=== PATIENT | female | born 1945 | race Caucasian/White ===

== ENCOUNTER 2022-03-13 13:30 | Outpatient (RCR) | payer MEDICARE, BC, SELFPAY ==
--- NOTE | 2022-02-11 15:16 | PTOPEVAL1 ---
Assessment and note entered by Lacey Catherine, PT Evaluation Information Assessment Status Evaluation Diagnosis L side sciatica Onset October 2021 Subjective Information gradual increase in pain in back; no injury or trauma to back; dr gave her steroids and they helped her pain, then when stopped med-pain came back worse; went to urgent care center for back pain; have not had any tests for her back; Reported Pain Level Pain Score Self Report Additional Pain Score Comments pain range of 2-10/10; pain into L LE to above knee- intermittent in leg; issues with moving L leg-- getting in/out car or bed; increase pain with walking few steps, home tasks; sleeping is problematic--cannot lie on her L side, problems falling asleep and awaken 10x/night due to pain; decrease pain with sitting, heat; is not taking any meds, was told she can take tylenol but does not want to take it everyday; uses the wheeled walker when pain is worse; home tasks are not able to be done due to pain; Assessment PT Clinical Summary Antonia has the diagnosis of L side sciatica, intermittent into L LE to anterior leg to above knee. She reports gradual increase in pain, without trauma or injury to back. Pain is limiting her walking, activity level with home and shopping tasks, sleeping tolerance. Her history includes B knee pain--has been recently to ortho dr and neck pain. Oswestry self assessment score of 60% limitation in activity. With the evaluation- she has poor standing posture of her thoracic and lumbar spine, pain is increased with standing trunk flexion and extension motions; she is very guarded and moves slowly, uses her UE's to move her L leg on/off mat B hamstring tightness; 2 minute walking test distance is 300'; weakness over trunk and hips; Skilled PT services are indicated for modalities to decrease pain, therapeutic exercises on land and in the water, for the buoyancy effects of the water and education for posture correction and HEP. Plan of Care Interventions Aquatic Therapy,Electrical Stimulation,Manual Therapy,Mechanical Traction,Patient/Caregiver Education,Therapeutic Activities,Therapeutic Exercise,Ultrasound,Other Other Interventions t
--- NOTE | 2022-03-13 14:16 | PTOPPROG ---
Assessment and note entered by Lacey Catherine, PT Evaluation Information Assessment Status Progress Diagnosis L side sciatica Onset October 2021 Subjective Information Antonia reports: pain is limiting her from walking and going out shopping, the stairs really bother her; some of the exercises make her back hurt more ; have a bladder infection and dr gave her some meds for it; have a fear of falling, so have not been walking too much; Very frustrated because of the back and leg pain and cannot do things--live alone and have to have her son help her now. Wants to continue therapy. Has an appointment for follow up with her dr in April. PAIN: pain has been staying about 6/10 all time the past week, low back, into L lateral hip, anterior thigh to knee- constant; pain increased with walking and activity; awaken from sleep 6-7x/night due to back pain; reported walking tolerance of about 150' then want to sit down; have been using the cane and walker at home due to pain; is doing dishes at home, making her bed, with resting and having to sit; cannot do laundry due to downstairs--son assist her; electrical stim made pain worse for few days after it; not sure if heat or ice really help; do like the pool exercises; have taken tylenol PRN--not taking every day; Assessment PT Clinical Summary Antonia has received 7 PT sessions for low back pain, on land and in the water. Compared to the initial evaluation; pain rating from 2-10/10 to 6/10 all time; continues to have radicular pain into L LE to above knee constantly; Self assessment Oswestry score is 54% limitation in activity, improved by 6%; reported sleeping tolerance has improved from awakening 10x to 6-7x/ night; slight increase in R and L hip strength, but continues to have pain with active exercises; 2 minute walking distance decreased by 35'; continues to have pain with standing trunk flexion and extension motions. Treatment has included heat, ice, electrical stim, manual therapy, water exercises--she reports the water exercises are best for her. The goals were partially achieved. Continue PT treatment, advancing activity/ strengthening as pain allows. Plan of Care Interventions Aquatic Therapy,Manual Therapy,Neuro Re-education, Patient/Caregiver Education,Therapeutic Activities, Therapeutic Exercise PT Services Indicated Yes Treatment Frequency and 2x/wk for 4 weeks Duration These treatments will address the objective
--- NOTE | 2022-03-15 08:21 | PCPTNOTE ---
pt called and left message--she wants to hold on PT at this time due to bladder/kidney infection. She will call if she changes her mind and wants to continue therapy. reeval date of Apr 10
--- NOTE | 2022-04-23 11:33 | PCPTNOTE ---
PHYSICAL THERAPY DISCHARGE 04-23-22 Attending Provider: Natalie Moscoso, Patient:Amie Roberson Date of :1945 Patient has not returned for any further treatments since 03/13/2022, therefore she will be discharged at this time. Antonia has received a total of 7 PT sessions for the diagnosis of sciatica, from February 11 to March 13, 2022. The goals were not assessed. Thank you for referring Mrs. Roberson to [facility].
== END 2022-04-23 14:05 | disposition home or self-care (01) ==
LOC: ANHPT 13:30
PROVIDERS: PCP Internal Medicine; Visit Provider Internal Medicine
DX: M54.32 Sciatica, left side (principal)
CPT/HCPCS: 97014; 97110; 97112; 97113; 97140; 97162; G0283